=== PATIENT | female | born 1985 | race American Indian/Alaskan Native ===

== ENCOUNTER 2020-11-24 14:35 | Emergency (ER) | payer MEDICAID ==
[2020-11-24] MEDS ORDERED: Doxycycline Monohydrate 100 MG Cap PO ONE (14:49)
[2020-11-24] MEDS ORDERED: Dexamethasone 4 MG Tab PO ONE (14:49)
--- NOTE | 2020-11-24 15:01 | EDM.PDOC ---
Scribed by Bhavna Miller 11/24/20 [id number] for Florentino Melendez MD ED HPI GENERAL MEDICAL PROBLEM - General Chief Complaint: ENT Problem Stated Complaint: COUGH HEADACHE EAR PAIN Time Seen by Provider: 11/24/20 14:42 Source of Information: Reports: Patient, RN, RN Notes Reviewed History Limitations: Reports: No Limitations - History of Present Illness INITIAL COMMENTS - FREE TEXT/NARRATIVE: Patient presents to ED by POV complaining of onset of 3 to 4 days ago sinus pain, congestion, and sore throat and low grade fevers. About 1 day after onset of symptoms she developed a sore throat as well. Admits to a dry cough, which she feels is due to sinus drainage. Denies wheezing or shortness of breath. Patient had COVID last summer. Denies history of asthma. Onset: Gradual Duration: Constant Quality: Reports: Ache Severity: Moderate Improves with: Reports: None Worsens with: Reports: None Associated Symptoms: Reports: No Other Symptoms ED ROS ENT - Review of Systems Review Of Systems: Comprehensive ROS is negative, except as noted in HPI. ED EXAM, ENT - Physical Exam Exam: See Below Exam Limited By: No Limitations General Appearance: Alert, WD/WN, No Apparent Distress Eye Exam: Bilateral Eye: EOMI, Normal Inspection, PERRL Ears: Normal Canal, Hearing Grossly Normal, TM Bulging (Rt), TM Dullness (B/L), TM Erythema (Left > Rt). No: Mastoid Swelling, Mastoid Tenderness, Canal Discharge, TM Blood, TM Fluid, TM Perforation, TM Vesicles Nose: No Blood, Nasal Discharge, Injected Turbinates Mouth/Throat: Normal Lips, Normal Teeth, Pharyngeal Erythema (Streak of redness with postnasal drip). No: Throat Swelling, Tonsillar Erythema, Tonsillar Exudates Head: Atraumatic, Normocephalic, Sinus Tenderness Neck: Normal Inspection, Supple, Non-Tender, Full Range of Motion. No: Lymphadenopathy (L), Lymphadenopathy (R) Respiratory/Chest: No Respiratory Distress, Lungs Clear, Normal Breath Sounds, No Accessory Muscle Use, Chest Non-Tender, Other (Mild dry cough) Cardiovascular: Normal Peripheral Pulses, Regular Rate, Rhythm, No Edema, No Gallop, No JVD, No Murmur, No Rub GI/Abdominal: Normal Bowel Sounds, Soft, Non-Tender, No Organomegaly, No Distention, No Abnormal Bruit, No Mass (Female) Exam: Deferred Rectal (Female) Exam: Deferred Back: Normal Inspection, Full Range of Motion Extremities: Normal Inspection, Normal Range of Motion, Non-Tender, No Pedal Edema, Normal Capillary Refill Neurological: Alert, Oriented, CN II-XII Intact, Normal Cognition, Normal Gait, No Motor/Sensory Deficits Psychiatric: Normal Affect, Normal Mood Skin: Warm, Dry, Intact, Normal Color, No Rash Course - Orders/Labs/Meds Orders: Active Orders 24 hr Category Date Time Status [place] [COVID-19/FLU A+B/RSV] [[facility]] Stat Lab 11/24/20 14:47 Ordered Meds: Medications Discontinued Medications Generic Name Dose Route Start Last Admin Trade Name Freq PRN Reason Stop Dose Admin Dexamethasone 8 mg 11/24/20 14:49 Dexamethasone 4 Mg Tab PO 11/24/20 14:50 ONETIME ONE Doxycycline Monohydrate 100 mg 11/24/20 14:49 Doxycycline Monohydrate 100 Mg Cap PO 11/24/20 14:50 ONETIME ONE Departure - Departure Time of Disposition: 14:58 Disposition: Home, Self-Care 01 Condition: Good Clinical Impression: Viral URI with cough Sinusitis Qualifiers: Sinusitis location: unspecified location Chronicity: acute Recurrence: non- recurrent Qualified Code(s): J01.90 - Acute sinusitis, unspecified Otitis media Qualifiers: Otitis media type: suppurative Chronicity: acute Laterality: bilateral Recurrence: non-recurrent Spontaneous tympanic membrane rupture: without spontaneous rupture Qualified Code(s): H66.003 - Acute suppurative otitis media without spontaneous rupture of ear drum, bilateral - Discharge Information *PRESCRIPTION DRUG MONITORING PROGRAM REVIEWED*: Not Applicable *COPY OF PRESCRIPTION DRUG MONITORING REPORT IN PATIENT MICHAEL: Not Applicable Instructions: Sinusitis, Adult, [id number], Otitis Media, Adult, [id number] Forms: ED Department Discharge Additional Instructions: Rx: Doxycycline 100mg Rx: Loratadine D-24HR Frequent saltwater gargles until sore throat resolves. Follow up in clinic if not improving in 4 to 5 days. - My Orders Last 24 Hours: My Active Orders 11/24/20 14:47 [place] [COVID-19/FLU A+B/RSV] [[facility]] Stat - Assessment/Plan Last 24 Hours: My Active Orders 11/24/20 14:47 [place] [COVID-19/FLU A+B/RSV] [[facility]] Stat I have read and agree with the documentation that has been completed regarding this visit. By signing this record, I attest that the documentation was completed in my physical presence and is an accurate record of the encounter.
[2020-11-24 15:31] LABS: CORONAVIRUS COVID-19 NAA NEGATIVE (NEGATIVE)
== END 2020-11-24 15:10 | disposition home or self-care (01) ==
LOC: DL.ED 14:35
DX: J01.90 Acute sinusitis, unspecified (principal); J06.9 Acute upper respiratory infection, unspecified; H66.003 Acute suppurative otitis media without spontaneous rupture of ear drum, bilateral; Z20.822 Contact with and (suspected) exposure to COVID-19
CPT/HCPCS: 0240U; 99283; A9270; J8540